=== PATIENT | female | born 1970 | race Caucasian/White ===

== ENCOUNTER 2016-05-16 14:22 | Emergency (ER) | payer BC ==
[~2016-05-16] VITALS: Ht 157.5 cm; Wt 92.0 kg
[~2016-05-16 14:22] MED LIST: CARV12.5 PO; CLON.2 PO; GABA600T PO; GEMF600T PO; HYDR-3533 PO; LISI-357 PO; PAXI20TA26 PO
[2016-05-16 14:26] VITALS: BP 137/84; PULSE 79; RESP 15; TEMP 97.9; O2SAT 95
[2016-05-16] MEDS ORDERED: SODIUM CHLOR 0.9% 1000 ML INJ 1,000 ML IV SCH (14:49)
[2016-05-16] MEDS ORDERED: METF500T PO (14:51)
[2016-05-16] MEDS ORDERED: CLON0.1T PO (14:51)
[2016-05-16] MEDS ORDERED: FLUO10CA5 PO (14:51)
[2016-05-16] MEDS ORDERED: LISI-519 PO (14:51)
[2016-05-16] MEDS ORDERED: ATOR10TA15 PO (14:51)
[2016-05-16] MEDS ORDERED: GABA800T PO (14:51)
[2016-05-16] MEDS ORDERED: CARV12.52 PO (14:51)
--- NOTE | 2016-05-16 14:56 | PD ---
HPI Chief Complaint: Flank/Kidney Pain Time Seen by Provider: 15:10 Travel History International Travel<30 days: No Contact w/Intl Traveler<30days: No Traveled to known affect area: No History of Present Illness HPI This patient was examined in the presence of a female nurse at all times. 45- year-old female presents for evaluation of multiple complaints. She reports a history of frequent kidney stones in the past that required stenting. She is complaining of bilateral flank pain and dysuria and increased urinary pressure for the past 2 weeks. She has been taking ibuprofen with minimal symptom relief. In addition the patient is complaining of possible abnormality in regards to her vagina. She reports that recently when she wiped after using the restroom she felt like there was something "popping out. She cannot characterize this any further. She denies any unusual discharge or any unusual bleeding. She does report a history of partial hysterectomy approximately 10 years ago. The patient also reports left superior breast soreness for the past month. Symptoms are worsened with palpation. She reports a history of pituitary tumor for several years and she notes that occasionally she has because of it. She has not filled any masses or lumps. She denies any fevers or chills. She reports that she had a mammogram 6 months ago which was normal. She has no other complaints at this time. PFSH Past Medical History Asthma: Yes Autoimmune Disease: No Blood Disorders: No Anxiety: Yes Depression: Yes Heart Rhythm Problems: No Cardiac Catheterization: No Cardiovascular Problems: Yes (HTN ) High Cholesterol: Yes Chest Pain: No Congestive Heart Failure: No COPD: No Diabetes: Yes Patient Takes Glucophage: Yes Diminished Hearing: No Endocrine: No Fibromyalgia: Yes Gastrointestinal Disorders: Yes GERD: Yes Genitourinary: Yes Headaches: Yes Hepatitis: No Hypertension: Yes Immune Disorder: No Kidney Stones: Yes Musculoskeletal: Yes Neurologic: Yes (PERIPHERAL NEUROPATHY ) Psychiatric: Yes (DEPRESSION) Reproductive: Yes Respiratory: Yes (CHRONIC BRONCHITIS) Migraines: Yes Myocardial Infarction: No Seizures: Yes Sleep Apnea: No Ulcer: No ?: Not Menopausal: Yes : 3 Para: 2 Miscarriage: 1 Ovarian Cysts: Yes Tubal Ligation: Yes Past Surgical History Abdominal Surgery: No Appendectomy: No Cardiac Surgery: No Cholecystectomy: No Ear Surgery: No Endocrine Surgery: No Eye Surgery: No Genitourinary Surgery: Yes (CYSTOGRAMS X5) Gynecologic Surgery: Yes (TUBAL LIGATION, PARTIAL HYSTERECTOMY ) Hysterectomy: Yes (04/18 PARTIAL) Neurologic Surgery: No Oral Surgery: No Thoracic Surgery: No Social History Alcohol Use: No Tobacco Use: No Substance Use: Yes (cocaine occ) Allergies-Medications (Allergen,Severity, Reaction): Coded Allergies: Cardura (Verified Allergy, Severe, Headache, 05/16/16) SEVERE HEADACHE Reported Meds & Prescriptions Reported Meds & Active Scripts Active Flagyl (Metronidazole) 500 Mg Tab 500 Mg PO BID 7 Days Bactrim DS (Sulfamethoxazole-Trimethoprim) 800-160 Mg Tab 1 Tab PO BID Reported Atorvastatin (Atorvastatin Calcium) 10 Mg Tab 10 Mg PO HS Metformin (Metformin HCl) 500 Mg Tab 500 Mg PO DAILY With a meal Fluoxetine (Fluoxetine HCl) 10 Mg Cap Unknown Dose PO HS Lisinopril 5 Mg Tab 5 Mg PO DAILY Carvedilol 12.5 Mg Tab 12.5 Mg PO BID Clonidine (Clonidine HCl) 0.1 Mg Tab 0.1 Mg PO TID Gabapentin 800 Mg Tab 1,600 Mg PO TID Review of Systems Except as stated in HPI: all other systems reviewed are Neg Physical Exam Narrative GENERAL: Well-developed well-nourished female in no acute distress SKIN: Warm and dry. No erythema, bruising, soft tissue swelling, fluctuance, induration HEAD: Atraumatic. Normocephalic. EYES: Pupils equal and round. No scleral icterus. No injection or drainage. ENT: No nasal bleeding or discharge. Mucous membranes pink and moist. NECK: Trachea midline. No JVD. CARDIOVASCULAR: Regular rate and rhythm. No murmur appreciated. RESPIRATORY: No accessory muscle use. Clear to auscultation. Breath sounds equal bilaterally. GASTROINTESTINAL: Abdomen soft, non-tender, nondistended. Hepatic and splenic margins not palpable. Examination of the breasts reveals pendulous symmetrical breasts bilaterally. There is some tenderness to palpation generalized in the left superior breast tissue. There is no palpable lump or mass. There is no erythema of the skin. There is no nipple discharge or dimpling. There is no axillary lymphadenopathy. Pelvic examination: There is a small amount of white discharge noted in the vaginal canal. There is some discomfort with speculum examination. There is mild left adnexal tenderness. No palpable masses. The cervix is not visualized on examination or by palpation. No foreign body. MUSCULOSKELETAL: No obvious deformities. There is mild bilateral CVA tenderness. NEUROLOGICAL: Awake and alert. No obvious cranial nerve deficits. Motor grossly within normal limits. Normal speech. PSYCHIATRIC: Appropriate mood and affect; insight and judgment normal. Data Data Last Documented VS Vital Signs Date Time Temp Pulse Resp B/P Pulse Ox O2 Delivery O2 Flow Rate FiO2 05/16/16 14:26 97.9 79 15 137/84 95 Orders Complete Blood Count With Diff (05/16/16 14:49) Comprehensive Metabolic Panel (05/16/16 14:49) Gc And Chlamydia Pcr (05/16/16 14:49) Wet Prep Profile (05/16/16 14:49) Urinalysis - C+S If Indicated (05/16/16 14:49) Iv Access Insert/Monitor (05/16/16 14:49) Ondansetron Inj (Zofran Inj) (05/16/16 15:00) Ketorolac Inj (Toradol Inj) (05/16/16 15:00) Sodium Chlor 0.9% 1000 Ml Inj (Ns 1000 M (05/16/16 14:49) Urine Culture (05/16/16 15:05) Labs Laboratory Tests Test 05/16/16 05/16/16 15:05 15:55 White Blood Count 7.1 TH/MM3 Red Blood Count 4.05 MIL/MM3 Hemoglobin 12.3 GM/DL Hematocrit 34.8 % Mean Corpuscular Volume 86.1 FL Mean Corpuscular Hemoglobin 30.4 PG Mean Corpuscular Hemoglobin 35.3 % Concent Red Cell Distribution Width 13.0 % Platelet Count 329 TH/MM3 Mean Platelet Volume 8.0 FL Neutrophils (%) (Auto) 60.7 % Lymphocytes (%) (Auto) 21.3 % Monocytes (%) (Auto) 9.9 % Eosinophils (%) (Auto) 7.2 % Basophils (%) (Auto) 0.9 % Neutrophils # (Auto) 4.3 TH/MM3 Lymphocytes # (Auto) 1.5 TH/MM3 Monocytes # (Auto) 0.7 TH/MM3 Eosinophils # (Auto) 0.5 TH/MM3 Basophils # (Auto) 0.1 TH/MM3 CBC Comment DIFF FINAL Differential Comment Urine Color YELLOW Urine Turbidity HAZY Urine pH 5.5 Urine Specific Hurricane 1.031 Urine Protein 30 mg/dL Urine Glucose (UA) NEG mg/dL Urine Ketones NEG mg/dL Urine Occult Blood NEG Urine Nitrite NEG Urine Bilirubin NEG Urine Urobilinogen 2.0 MG/DL Urine Leukocyte Esterase LARGE Urine RBC 7 /hpf Urine WBC 7 /hpf Urine Squamous Epithelial 25 /hpf Cells Urine Bacteria MOD /hpf Urine Hyaline Casts 3 /lpf Urine Mucus FEW /lpf Microscopic Urinalysis Comment CULTURE INDICATED Sodium Level 137 MEQ/L Potassium Level 3.6 MEQ/L Chloride Level 100 MEQ/L Carbon Dioxide Level 28.5 MEQ/L Anion Gap 9 MEQ/L Blood Urea Nitrogen 14 MG/DL Creatinine 1.05 MG/DL Estimat Glomerular Filtration 56 ML/MIN Rate Random Glucose 119 MG/DL Calcium Level 9.3 MG/DL Total Bilirubin 0.4 MG/DL Aspartate Amino Transf 13 U/L (AST/SGOT) Alanine Aminotransferase 24 U/L (ALT/SGPT) Alkaline Phosphatase 101 U/L Total Protein 7.8 GM/DL Albumin 4.1 GM/DL Clue Cells (Wet Prep) PRESENT Vaginal Trichomonas (Wet Prep) NONE SEEN Vaginal Yeast (Wet Prep) NONE SEEN MDM Medical Decision Making Medical Screen Exam Complete: Yes Emergency Medical Condition: Yes Medical Record Reviewed: Yes Differential Diagnosis Chronic flank pain, neuropathic pain, renal stone, pyelonephritis, hydronephrosis, intravaginal foreign body, uterine prolapse, vaginitis, ovarian cyst Narrative Course 45-year-old female presents with 2 weeks of bilateral flank pain, the sensation of something "popping out" of her vagina when she wiped with tissue paper recently, left breast soreness for one month. Physical examination is reassuring. She is nontoxic in appearance. The patient had multiple CAT scans of the abdomen and pelvis in the past with stable nonobstructing kidney stones. I don't suspect that the patient has an obstructing kidney stone clinically at this time and I did discuss with the patient the risk of radiation exposure from multiple CT imaging and the patient is agreeable with holding off on CT imaging at this time and just treating her empirically. The patient will be given pain medication and nausea medicine. Basic lab work will be performed. Pelvic examination revealed a small amount of white discharge in the vaginal canal with no obvious deformity. She notes a history of partial hysterectomy in the past. Speculum examination and bimanual examination revealed no cervix. She has mild left adnexal tenderness without guarding or palpable mass. She reports that in the past she has had ovarian cysts on her left ovary. She reports that she has not been sexually active and 2.5 years and so she will not be treated for GC/CL prior to the PCR results. The patient's laboratory imaging studies have been reviewed. She has positive clue cells, urinalysis and symptoms are consistent with UTI. She'll be discharged with Bactrim and Flagyl. Diagnosis Primary Impression: Urinary tract infection Qualified Code: N30.01 - Acute cystitis with hematuria Additional Impression: Bacterial vaginosis Additional Instructions: Medication as prescribed. Follow-up with primary care physician. Return for any emergent medical conditions. Med/Other Pt SpecificInfo: Prescription(s) given Scripts Metronidazole (Flagyl)500 Mg [id number] Mg PO BID 7 Days Ref 0 Prov:Jaci Joe MD 05/16/16 Sulfamethoxazole-Trimethoprim (Bactrim DS)800-160 Mg Tab1 Tab PO BID #14 TAB Ref 0 Prov:Jaci Joe MD 05/16/16 Disposition: DISCHARGE HOME Condition: Stable Wolfgang Tan May 16, 2016 14:56
[2016-05-16] MEDS ORDERED: ONDANSETRON HCL 4 MG/2 ML VIAL IVP ONE (15:00)
[2016-05-16] MEDS ORDERED: KETOROLAC TROMETHAMINE 30 MG/ML (IVP) VIAL IV PUSH ONE (15:00)
[2016-05-16 15:26] LABS: AUTOMATED NEUTROPHIL # 4.3 TH/MM3 (1.8-7.7); BASOPHIL # 0.1 TH/MM3 (0-0.2); BASOPHIL % 0.9 % (0.0-2.0); EOSINOPHIL # 0.5 TH/MM3 (0-0.4); EOSINOPHIL % 7.2 % (0.0-4.0); HEMATOCRIT 34.8 % (35.0-46.0); HEMO FLAGS DIFF FINAL; LYMPH % 21.3 % (9.0-44.0); LYMPHOCYTE # 1.5 TH/MM3 (1.0-4.8); MEAN CELL VOLUME 86.1 FL (80.0-100.0); MEAN CORPUSCULAR HEMOGLOBIN 30.4 PG (27.0-34.0); MEAN CORPUSCULAR HGB CONC 35.3 % (32.0-36.0); MONO % 9.9 % (0.0-8.0); NEUT % 60.7 % (16.0-70.0); PLATELET COUNT 329 TH/MM3 (150-450); RED BLOOD COUNT 4.05 MIL/MM3 (4.00-5.30); WHITE BLOOD COUNT 7.1 TH/MM3 (4.0-11.0)
[2016-05-16 15:43] LABS: BACTERIA, URINE MOD /hpf; BLOOD, URINE NEG (NEG); COMMENT (UR) CULTURE INDICATED; CULTURE IF INDICATED CULTURE INDICATED; GLUCOSE,URINE NEG (NEG); HYALINE CAST, URINE 3 /lpf (RARE); KETONE, URINE NEG (NEG); MUCUS URINE FEW /lpf (OCC); NITRITE,URINE NEG (NEG); PH, URINE 5.5 (5.0-8.5); SQUAMOUS EPITHELIAL CELL URINE 25 /hpf (0-5); URINE COLOR YELLOW (YELLW/STRAW)
[2016-05-16 15:55] LABS: ANION GAP 9 MEQ/L (5-15); AST (GOT) 13 U/L (15-37); BICARBONATE 28.5 MEQ/L (21.0-32.0); BLOOD UREA NITROGEN 14 MG/DL (7-18); CHLORIDE 100 MEQ/L (98-107); GLOMERULAR FILTRATION RATE 56 ML/MIN (>89); POTASSIUM 3.6 MEQ/L (3.5-5.1); SODIUM (NA) 137 MEQ/L (136-145)
[2016-05-16 16:35] LABS: ALKALINE PHOSPHATASE 101 U/L (45-117); ALT (GPT) 24 U/L (10-53); TOTAL BILIRUBIN ADULT 0.4 MG/DL (0.2-1.0)
[2016-05-16] MEDS ORDERED: BACT800T5 PO (16:53)
[2016-05-16] MEDS ORDERED: METR-1 PO (16:53)
[2016-05-16] MEDS ORDERED: ACETAMINOPHEN 325 MG TAB PO ONE (17:00)
[2016-05-16] MEDS ORDERED: traMADol HCL 50 MG TAB PO ONE (17:00)
--- NOTE | 2016-05-16 17:06 | PD ---
Data Data Last Documented VS Vital Signs Date Time Temp Pulse Resp B/P Pulse Ox O2 Delivery O2 Flow Rate FiO2 05/16/16 14:26 97.9 79 15 137/84 95 Orders Complete Blood Count With Diff (05/16/16 14:49) Comprehensive Metabolic Panel (05/16/16 14:49) Gc And Chlamydia Pcr (05/16/16 14:49) Wet Prep Profile (05/16/16 14:49) Urinalysis - C+S If Indicated (05/16/16 14:49) Iv Access Insert/Monitor (05/16/16 14:49) Ondansetron Inj (Zofran Inj) (05/16/16 15:00) Ketorolac Inj (Toradol Inj) (05/16/16 15:00) Sodium Chlor 0.9% 1000 Ml Inj (Ns 1000 M (05/16/16 14:49) Urine Culture (05/16/16 15:05) Tramadol (Ultram) (05/16/16 17:00) Acetaminophen (Tylenol) (05/16/16 17:00) Labs Laboratory Tests Test 05/16/16 05/16/16 15:05 15:55 White Blood Count 7.1 TH/MM3 Red Blood Count 4.05 MIL/MM3 Hemoglobin 12.3 GM/DL Hematocrit 34.8 % Mean Corpuscular Volume 86.1 FL Mean Corpuscular Hemoglobin 30.4 PG Mean Corpuscular Hemoglobin 35.3 % Concent Red Cell Distribution Width 13.0 % Platelet Count 329 TH/MM3 Mean Platelet Volume 8.0 FL Neutrophils (%) (Auto) 60.7 % Lymphocytes (%) (Auto) 21.3 % Monocytes (%) (Auto) 9.9 % Eosinophils (%) (Auto) 7.2 % Basophils (%) (Auto) 0.9 % Neutrophils # (Auto) 4.3 TH/MM3 Lymphocytes # (Auto) 1.5 TH/MM3 Monocytes # (Auto) 0.7 TH/MM3 Eosinophils # (Auto) 0.5 TH/MM3 Basophils # (Auto) 0.1 TH/MM3 CBC Comment DIFF FINAL Differential Comment Urine Color YELLOW Urine Turbidity HAZY Urine pH 5.5 Urine Specific [place] 1.031 Urine Protein 30 mg/dL Urine Glucose (UA) NEG mg/dL Urine Ketones NEG mg/dL Urine Occult Blood NEG Urine Nitrite NEG Urine Bilirubin NEG Urine Urobilinogen 2.0 MG/DL Urine Leukocyte Esterase LARGE Urine RBC 7 /hpf Urine WBC 7 /hpf Urine Squamous Epithelial 25 /hpf Cells Urine Bacteria MOD /hpf Urine Hyaline Casts 3 /lpf Urine Mucus FEW /lpf Microscopic Urinalysis Comment CULTURE INDICATED Sodium Level 137 MEQ/L Potassium Level 3.6 MEQ/L Chloride Level 100 MEQ/L Carbon Dioxide Level 28.5 MEQ/L Anion Gap 9 MEQ/L Blood Urea Nitrogen 14 MG/DL Creatinine 1.05 MG/DL Estimat Glomerular Filtration 56 ML/MIN Rate Random Glucose 119 MG/DL Calcium Level 9.3 MG/DL Total Bilirubin 0.4 MG/DL Aspartate Amino Transf 13 U/L (AST/SGOT) Alanine Aminotransferase 24 U/L (ALT/SGPT) Alkaline Phosphatase 101 U/L Total Protein 7.8 GM/DL Albumin 4.1 GM/DL Clue Cells (Wet Prep) PRESENT Vaginal Trichomonas (Wet Prep) NONE SEEN Vaginal Yeast (Wet Prep) NONE SEEN MDM Supervised Visit with ROGERS: Yes Narrative Course The history, exam, and medical decision-making in the associated midlevel provider note were completed with my assistance. I reviewed and agree with the findings presented. I attest that I had a [id number] encounter with the patient on the same day, and personally performed and documented my assessment and findings in the medical record. *My assessment and Findings: This is a 45-year-old female who presents to the emergency department with multiple vague complaints, her chief complaint being that she feels like something is coming out of her vagina. She is very well- appearing on exam. Labs are reassuring. She does have a possible urinary tract infection. Pelvic exam was reportedly unremarkable. I think patient is safe for discharge home with oral antibiotics. Diagnosis Primary Impression: Urinary tract infection Qualified Code: N30.01 - Acute cystitis with hematuria Additional Impression: Bacterial vaginosis Additional Instruction: Medication as prescribed. Follow-up with primary care physician. Return for any emergent medical conditions. Scripts Metronidazole (Flagyl)500 Mg [id number] Mg PO BID 7 Days Ref 0 Prov:Jaci Joe MD 05/16/16 Sulfamethoxazole-Trimethoprim (Bactrim DS)800-160 Mg Tab1 Tab PO BID #14 TAB Ref 0 Prov:Jaci Joe MD 2/4/17 Disposition: 01 DISCHARGE HOME Condition: Stable Jaci Joe MD May 16, 2016 17:06
[2016-05-16 17:44] VITALS: BP 125/74
[2016-05-16 18:52] LABS: CHLAMYDIA PCR NOT DETECTED (NOT DETECT); NEISSERIA PCR NOT DETECTED (NOT DETECT)
== END 2016-05-16 18:04 | disposition home or self-care (01) ==
LOC: NEPE 14:22
DX: N39.0 Urinary tract infection, site not specified (principal); N76.0 Acute vaginitis; E11.9 Type 2 diabetes mellitus without complications; I10 Essential (primary) hypertension; Z87.442 Personal history of urinary calculi
CPT/HCPCS: 80053; 81001; 85025; 87086; 87210; 87491; 87591; 96374; 96375; 99284; J1885; J2405; J7030

== ENCOUNTER 2016-10-21 10:03 | Emergency (ER) | payer BC ==
[~2016-10-21 10:03] MED LIST changes: +ATOR10TA15 PO; +BACT800T5 PO; -CARV12.5 PO; +CARV12.52 PO; -CLON.2 PO; +CLON0.1T PO; +FLUO10CA5 PO; -GABA600T PO; +GABA800T PO; -GEMF600T PO; -HYDR-3533 PO; -LISI-357 PO; +LISI-519 PO; +METF500T PO; +METR-1 PO; -PAXI20TA26 PO
[2016-10-21 10:04] VITALS: PULSE 90; RESP 24; TEMP 98.7; O2SAT 97
[2016-10-21] MEDS ORDERED: DULOXETINE (10:35)
[2016-10-21] MEDS ORDERED: DULO20 PO (10:35)
[2016-10-21] MEDS ORDERED: IBUPROFEN 600 MG TAB PO ONE (11:15)
[2016-10-21] MEDS ORDERED: LORazepam 0.5 MG TAB PO ONE (11:15)
[2016-10-21 11:40] LABS: AUTOMATED NEUTROPHIL # 3.4 TH/MM3 (1.8-7.7); BASOPHIL # 0.1 TH/MM3 (0-0.2); BASOPHIL % 1.1 % (0.0-2.0); EOSINOPHIL # 0.2 TH/MM3 (0-0.4); HEMATOCRIT 37.1 % (35.0-46.0); LYMPH % 21.9 % (9.0-44.0); LYMPHOCYTE # 1.1 TH/MM3 (1.0-4.8); MEAN CORPUSCULAR HGB CONC 35.3 % (32.0-36.0); MONO % 7.9 % (0.0-8.0); NEUT % 65.1 % (16.0-70.0); PLATELET COUNT 87 TH/MM3 (150-450); RED BLOOD COUNT 4.36 MIL/MM3 (4.00-5.30); RED CELL DISTRIBUTION WIDTH 12.3 % (11.6-17.2); WHITE BLOOD COUNT 5.2 TH/MM3 (4.0-11.0)
--- NOTE | 2016-10-21 11:59 | RADRPT ---
EXAM DATE/TIME: 10/21/2016 11:31 [facility] COMPARISON: No previous studies available for comparison. INDICATIONS : Right hand pain after lifting a mattress. MEDICAL HISTORY : None. SURGICAL HISTORY : None. ENCOUNTER: Initial ACUITY: 1 week PAIN SCORE: 10/10 LOCATION: Right hand, first digit FINDINGS: No definite fractures, or dislocations are identified. No definite lytic or sclerotic lesion is seen . The joint spaces are well maintained. CONCLUSION: Unremarkable study. Winsome Kat MD on October 21, 2016 at 11:57 Board Certified Radiologist. This report was verified electronically.
[2016-10-21 12:03] LABS: ALKALINE PHOSPHATASE 92 U/L (45-117); ALT (GPT) 23 U/L (10-53); ANION GAP 7 MEQ/L (5-15); AST (GOT) 20 U/L (15-37); BICARBONATE 26.9 MEQ/L (21.0-32.0); BLOOD UREA NITROGEN 6 MG/DL (7-18); CHLORIDE 106 MEQ/L (98-107); GLOMERULAR FILTRATION RATE 90 ML/MIN (>89); SODIUM (NA) 140 MEQ/L (136-145); TOTAL BILIRUBIN ADULT 0.4 MG/DL (0.2-1.0)
[2016-10-21 12:16] LABS: HEMO FLAGS AUTO DIFF
[2016-10-21 12:17] LABS: PLATELET ESTIMATE SMEAR LOW (NORMAL); PLATELET MORPHOLOGY NORMAL (NORMAL); SCAN/DIFF AUTO DIFF CONFIRMED
[2016-10-21 12:31] LABS: AMPHETAMINE, URINE NEG (NEG); BARBITURATES, URINE NEG (NEG); COCAINE, URINE POS (NEG)
--- NOTE | 2016-10-21 12:31 | PD ---
HPI Chief Complaint: Psychiatric Symptoms Time Seen by Provider: 10:48 Travel History International Travel<30 days: No Contact w/Intl Traveler<30days: No Traveled to known affect area: No History of Present Illness HPI Patient is a 45-year-old female comes in complaining of anxiety, and "feeling like I can't do it anymore." She says that her son recently and she is not handling it well. She denies any suicidal or homicidal ideation. She normally takes Ativan for anxiety, but is out of it. Her primary doctor told her it was only a temporary thing, and she does not want to prescribe any more for her. She also complains of pain to her right thumb. She says she has a history of de Quervain's tenosynovitis, and does not know if she recently injured it. She denies any other medical complaints. PFSH Past Medical History Asthma: Yes Autoimmune Disease: No Blood Disorders: No Anxiety: Yes Depression: Yes Heart Rhythm Problems: No Cardiac Catheterization: No Cardiovascular Problems: Yes (HTN ) High Cholesterol: Yes Chest Pain: No Congestive Heart Failure: No COPD: No Diabetes: Yes Patient Takes Glucophage: Yes Diminished Hearing: No Endocrine: No Fibromyalgia: Yes Gastrointestinal Disorders: Yes GERD: Yes Genitourinary: Yes Headaches: Yes Hepatitis: No Hypertension: Yes Immune Disorder: No Kidney Stones: Yes Musculoskeletal: Yes Neurologic: Yes (PERIPHERAL NEUROPATHY ) Psychiatric: Yes (DEPRESSION) Reproductive: Yes Respiratory: Yes (CHRONIC BRONCHITIS) Migraines: Yes Myocardial Infarction: No Seizures: Yes Sleep Apnea: No Ulcer: No ?: Not Menopausal: Yes : 3 Para: 2 Miscarriage: 1 Ovarian Cysts: Yes Tubal Ligation: Yes Past Surgical History Abdominal Surgery: No Appendectomy: No Cardiac Surgery: No Cholecystectomy: No Ear Surgery: No Endocrine Surgery: No Eye Surgery: No Genitourinary Surgery: Yes (CYSTOGRAMS X5) Gynecologic Surgery: Yes (TUBAL LIGATION, PARTIAL HYSTERECTOMY ) Hysterectomy: Yes (04/18 PARTIAL) Neurologic Surgery: No Oral Surgery: No Thoracic Surgery: No Social History Alcohol Use: No Tobacco Use: No Substance Use: Yes (cocaine occ) Allergies-Medications (Allergen,Severity, Reaction): Coded Allergies: Cardura (Verified Allergy, Severe, Headache, 05/16/16) SEVERE HEADACHE Reported Meds & Prescriptions Reported Meds & Active Scripts Active Reported Cymbalta DR (Duloxetine HCl) 20 Mg Capdr 20 Mg PO DAILY [douloxetine] Atorvastatin (Atorvastatin Calcium) 10 Mg Tab 10 Mg PO HS Metformin (Metformin HCl) 500 Mg Tab 500 Mg PO DAILY With a meal Lisinopril 5 Mg Tab 5 Mg PO DAILY Carvedilol 12.5 Mg Tab 12.5 Mg PO BID Clonidine (Clonidine HCl) 0.1 Mg Tab 0.1 Mg PO TID Gabapentin 800 Mg Tab 1,600 Mg PO TID Review of Systems Except as stated in HPI: all other systems reviewed are Neg General / Constitutional: No: Fever, Chills Eyes: No: Blurred Vision HENT: No: Headaches, Lightheadedness Cardiovascular: No: Chest Pain or Discomfort Respiratory: No: Shortness of Breath Gastrointestinal: No: Nausea, Vomiting Musculoskeletal: Positive: Pain Skin: No Rash, No Change in Pigmentation Neurologic: No: Weakness, Dizziness Psychiatric: Positive: Anxiety, No: Suicidal Ideations, Homicidal Ideation Physical Exam Narrative GENERAL: Awake and alert, in no acute distress. SKIN: Focused skin assessment warm/dry. HEAD: Atraumatic. Normocephalic. EYES: Pupils equal and round. No scleral icterus. ENT: Mucous membranes pink and moist. NECK: Trachea midline. No JVD. CARDIOVASCULAR: Regular rate and rhythm. No murmur appreciated. RESPIRATORY: No accessory muscle use. Clear to auscultation. Breath sounds equal bilaterally. GASTROINTESTINAL: Abdomen soft, non-tender, nondistended. Hepatic and splenic margins not palpable. MUSCULOSKELETAL: No obvious deformities. No clubbing. No cyanosis. No edema. Tender to palpation of the right thumb. Pain with movement of the right thumb. No signs of infection. NEUROLOGICAL: Awake and alert. No obvious cranial nerve deficits. Motor grossly within normal limits. Normal speech. PSYCHIATRIC: Tearful; insight and judgment normal. Data Data Last Documented VS Vital Signs Date Time Temp Pulse Resp B/P Pulse Ox O2 Delivery O2 Flow Rate FiO2 10/21/16 10:04 98.7 90 24 97 Room Air Orders Complete Blood Count With Diff (10/21/16 11:04) Comprehensive Metabolic Panel (10/21/16 11:04) Drug Screen, Random Urine (10/21/16 11:04) Hand, Complete ([id number]) (10/21/16 ) Ibuprofen (Motrin) (10/21/16 11:15) Lorazepam (Ativan) (10/21/16 11:15) Labs Laboratory Tests Test 10/21/16 10/21/16 11:22 11:44 White Blood Count 5.2 TH/MM3 Red Blood Count 4.36 MIL/MM3 Hemoglobin 13.1 GM/DL Hematocrit 37.1 % Mean Corpuscular Volume 85.0 FL Mean Corpuscular Hemoglobin 30.0 PG Mean Corpuscular Hemoglobin 35.3 % Concent Red Cell Distribution Width 12.3 % Platelet Count 87 TH/MM3 Mean Platelet Volume 10.2 FL Neutrophils (%) (Auto) 65.1 % Lymphocytes (%) (Auto) 21.9 % Monocytes (%) (Auto) 7.9 % Eosinophils (%) (Auto) 4.0 % Basophils (%) (Auto) 1.1 % Neutrophils # (Auto) 3.4 TH/MM3 Lymphocytes # (Auto) 1.1 TH/MM3 Monocytes # (Auto) 0.4 TH/MM3 Eosinophils # (Auto) 0.2 TH/MM3 Basophils # (Auto) 0.1 TH/MM3 CBC Comment AUTO DIFF Differential Comment AUTO DIFF CONFIRMED Platelet Estimate LOW Platelet Morphology Comment NORMAL Sodium Level 140 MEQ/L Potassium Level 4.0 MEQ/L Chloride Level 106 MEQ/L Carbon Dioxide Level 26.9 MEQ/L Anion Gap 7 MEQ/L Blood Urea Nitrogen 6 MG/DL Creatinine 0.70 MG/DL Estimat Glomerular Filtration 90 ML/MIN Rate Random Glucose 113 MG/DL Calcium Level 9.1 MG/DL Total Bilirubin 0.4 MG/DL Aspartate Amino Transf 20 U/L (AST/SGOT) Alanine Aminotransferase 23 U/L (ALT/SGPT) Alkaline Phosphatase 92 U/L Total Protein 7.6 GM/DL Albumin 3.9 GM/DL Urine Opiates Screen NEG Urine Barbiturates Screen NEG Urine Amphetamines Screen NEG Urine Benzodiazepines Screen NEG Urine Cocaine Screen POS Urine Cannabinoids Screen NEG MDM Medical Decision Making Medical Screen Exam Complete: Yes Emergency Medical Condition: Yes Medical Record Reviewed: Yes Differential Diagnosis Anxiety versus depression versus intoxication versus drug seeking Narrative Course Patient is a 45-year-old female comes in complaining of "being unable to handle life." She complains of right thumb pain. Exam shows no acute abnormalities. X-ray of the hand shows no acute abnormal body. Labs show no acute abnormalities. Patient given ibuprofen for pain. Given a small dose of Ativan. She'll be cleared for psychiatric evaluation. Disposition per psychiatry. Diagnosis Primary Impression: Anxiety Additional Impression: Thumb pain Qualified Code: M79.644 - Thumb pain, right Condition: Stable Cynthia Hernandez MD Oct 21, 2016 12:31
== END 2016-10-21 13:31 | disposition home or self-care (01) ==
LOC: NEPD 10:03 → NEPJ 13:31
DX: F41.9 Anxiety disorder, unspecified (principal); M79.644 Pain in right finger(s); J45.909 Unspecified asthma, uncomplicated; F32.9 Major depressive disorder, single episode, unspecified; I10 Essential (primary) hypertension; M79.7 Fibromyalgia; K21.9 Gastro-esophageal reflux disease without esophagitis; E11.40 Type 2 diabetes mellitus with diabetic neuropathy, unspecified; E78.00 Pure hypercholesterolemia, unspecified
CPT/HCPCS: 73130; 80053; 80307; 85025; 99284

== ENCOUNTER 2017-03-28 14:02 | Emergency (ER) | payer BC ==
[~2017-03-28] VITALS: Ht 157.5 cm; Wt 85.0 kg
[~2017-03-28 14:02] MED LIST changes: -BACT800T5 PO; +DULO20 PO; +DULOXETINE; -FLUO10CA5 PO; -METR-1 PO
[2017-03-28 14:03] VITALS: BP 143/71; PULSE 82; RESP 20; TEMP 98.8; O2SAT 98
[2017-03-28] MEDS ORDERED: DULO1CAP2 PO (14:38)
[2017-03-28] MEDS ORDERED: KETOROLAC TROMETHAMINE 60 MG/2 ML (IM) VIAL IM ONE (15:15)
[2017-03-28] MEDS ORDERED: MOBI15TA PO (15:23)
[2017-03-28] MEDS ORDERED: TYLETAB34 PO (15:23)
--- NOTE | 2017-03-28 15:23 | PD ---
HPI Chief Complaint: Pain: Acute or Chronic Time Seen by Provider: 15:02 Travel History International Travel<30 days: No Contact w/Intl Traveler<30days: No Traveled to known affect area: No History of Present Illness HPI 46-year-old female complains of right shoulder pain and right-sided neck pain. Patient states that she was trying to catch another falling person 3 days ago. Since having sharp pain on the right-sided neck, right shoulder pad and right shoulder area since then. Patient denies any direct fall to the shoulder. Patient denies any focal weakness or numbness of the extremity. On a scale of 1 -10 the pain is a 9. PFSH Past Medical History Asthma: Yes Autoimmune Disease: No Blood Disorders: No Anxiety: Yes Depression: Yes Heart Rhythm Problems: No Cardiac Catheterization: No Cardiovascular Problems: Yes (HTN ) High Cholesterol: Yes Chest Pain: No Congestive Heart Failure: No COPD: No Diabetes: Yes Patient Takes Glucophage: No Diminished Hearing: No Endocrine: No Fibromyalgia: Yes Gastrointestinal Disorders: Yes GERD: Yes Genitourinary: Yes Headaches: Yes Hepatitis: No Hypertension: Yes Immune Disorder: No Kidney Stones: Yes Musculoskeletal: Yes Neurologic: Yes (PERIPHERAL NEUROPATHY ) Psychiatric: Yes (DEPRESSION) Reproductive: Yes Respiratory: Yes (CHRONIC BRONCHITIS) Migraines: Yes Myocardial Infarction: No Seizures: Yes Sleep Apnea: No Ulcer: No ?: Not Menopausal: Yes : 3 Para: 2 Miscarriage: 1 Ovarian Cysts: Yes Tubal Ligation: Yes Past Surgical History Abdominal Surgery: No Appendectomy: No Cardiac Surgery: No Cholecystectomy: No Ear Surgery: No Endocrine Surgery: No Eye Surgery: No Genitourinary Surgery: Yes (CYSTOGRAMS X5) Gynecologic Surgery: Yes (TUBAL LIGATION, PARTIAL HYSTERECTOMY ) Hysterectomy: Yes Neurologic Surgery: No Oral Surgery: No Thoracic Surgery: No Social History Alcohol Use: No Tobacco Use: No Substance Use: Yes (cocaine occ) Allergies-Medications (Allergen,Severity, Reaction): Coded Allergies: doxazosin (Unverified Allergy, Severe, Headache, 03/28/17) SEVERE HEADACHE Reported Meds & Prescriptions Reported Meds & Active Scripts Active Mobic (Meloxicam) 15 Mg Tab 15 Mg PO DAILY Tylenol-Codeine #3 (Acetaminophen-Codeine) 300-30 mg Tab 1-2 Tab PO Q6H PRN Reported Duloxetine DR (Duloxetine HCl) Unknown Strength Capdr Unknown Dose PO DAILY Cymbalta DR (Duloxetine HCl) 20 Mg Capdr 20 Mg PO DAILY Atorvastatin (Atorvastatin Calcium) 10 Mg Tab 10 Mg PO HS Metformin (Metformin HCl) 500 Mg Tab 500 Mg PO DAILY With a meal Lisinopril 5 Mg Tab 5 Mg PO DAILY Carvedilol 12.5 Mg Tab 12.5 Mg PO BID Clonidine (Clonidine HCl) 0.1 Mg Tab 0.1 Mg PO TID Gabapentin 800 Mg Tab 1,600 Mg PO TID Review of Systems General / Constitutional: No: Fever Eyes: No: Visual changes HENT: Positive: Neck Pain, No: Headaches Cardiovascular: No: Chest Pain or Discomfort Respiratory: No: Shortness of Breath Gastrointestinal: No: Abdominal Pain Genitourinary: No: Dysuria Musculoskeletal: Positive: Pain Skin: No Rash Neurologic: No: Weakness Psychiatric: No: Depression Endocrine: No: Polydipsia Hematologic/Lymphatic: No: Easy Bruising Physical Exam Narrative GENERAL: Well-nourished, well-developed patient. SKIN: Focused skin assessment warm/dry. HEAD: Normocephalic. EYES: No scleral icterus. No injection or drainage. NECK: Supple, trachea midline. No JVD or lymphadenopathy. Patient has mild to moderate tenderness and palpation right paraspinal areas cervical spine. No midline tenderness. CARDIOVASCULAR: Regular rate and rhythm without murmurs, gallops, or rubs. RESPIRATORY: Breath sounds equal bilaterally. No accessory muscle use. GASTROINTESTINAL: Abdomen soft, non-tender, nondistended. MUSCULOSKELETAL: No cyanosis, or edema. Patient has mild to moderate tenderness palpation right shoulder pad area with moderate tenderness diffuse over the right shoulder joint. Limited range of motion of the right shoulder secondary to pain. Sensorimotor function distally intact. BACK: Nontender without obvious deformity. No CVA tenderness. Neurologic exam normal. Data Data Last Documented VS Vital Signs Date Time Temp Pulse Resp B/P (MAP) Pulse Ox O2 Delivery O2 Flow Rate FiO2 03/28/17 14:03 98.8 82 20 143/71 (95) 98 Room Air Orders Orders Ketorolac Inj (Toradol Inj) (03/28/17 15:15) Shoulder, Limited(2vws) (03/28/17 15:07) Spine, Cervical - Ltd (Ap&Lat) (03/28/17 15:07) MDM Medical Decision Making Medical Screen Exam Complete: Yes Emergency Medical Condition: Yes Interpretation(s) Last Impressions Shoulder X-Ray 03/28/17 1507 Signed Impressions: Service Date/Time: Tuesday, March 28, 2017 15:20 - CONCLUSION: 2 loose bodies without an obvious donor site . No definite acute fracture . Carlos Enrique Vuong MD Cervical Spine X-Ray 03/28/17 1507 Signed Impressions: Service Date/Time: Tuesday, March 28, 2017 15:15 - CONCLUSION: Unremarkable limited examination of the cervical spine except at 2 levels of mild degenerative disc disease. Carlos Enrique Vuong MD Differential Diagnosis Differential diagnosis including musculoskeletal, fracture, dislocation, rotator cuff injury. Narrative Course 46-year-old female with right-sided neck pain, right shoulder head pain, right shoulder pain. Status post trying to break a fall from another person. Toradol 60 mg IM. Diagnosis Primary Impression: Sprain of shoulder, right Qualified Codes: S43.401A - Unspecified sprain of right shoulder joint, initial encounter Additional Impression: Cervical strain Qualified Codes: S16.1XXA - Strain of muscle, fascia and tendon at neck level , initial encounter Patient Instructions: General Instructions Med/Other Pt SpecificInfo: Prescription(s) given Scripts Meloxicam (Mobic) 15 Mg Tab 15 MG PO DAILY for Pain, #20 TAB 0 Refills Prov: Mark Mott MD 03/28/17 Disposition: 01 DISCHARGE HOME Condition: Stable Mark Mott MD Mar 28, 2017 15:23
--- NOTE | 2017-03-28 15:42 | RADRPT ---
EXAM DATE/TIME: 03/28/2017 15:15 [facility] COMPARISON: No previous studies available for comparison. INDICATIONS : Pain in shoulder, extending through neck after straining from holding a heavy load. MEDICAL HISTORY : None. SURGICAL HISTORY : None. ENCOUNTER: Initial ACUITY: 1 day PAIN SCORE: 6/10 LOCATION: Neck. FINDINGS: Two projection examination was performed. There is normal alignment and curvature of the vertebral b odies down to the level of C7. No evidence of fracture or subluxation. Vertebral body height is mele ntained. There is mild intervertebral disc space tearing at the C6-7 level and to a lesser extent C5- 6. The prevertebral soft tissues are of normal thickness. The atlanto-axial articulation is intact. CONCLUSION: Unremarkable limited examination of the cervical spine except at 2 levels of mild degenerative disc d isease. Carlos Enrique Vuong MD on March 28, 2017 at 15:39 Board Certified Radiologist. This report was verified electronically.
--- NOTE | 2017-03-28 15:43 | RADRPT ---
EXAM DATE/TIME: 03/28/2017 15:20 [facility] COMPARISON: No previous studies available for comparison. INDICATIONS : Pain in shoulder, extending through neck after straining from holding a heavy load. MEDICAL HISTORY : None. SURGICAL HISTORY : None. ENCOUNTER: Initial ACUITY: 1 day PAIN SCORE: 5/10 LOCATION: Right shoulder. FINDINGS: Two view examination of the right shoulder demonstrates no evidence of fracture or dislocation. The glenohumeral and acromioclavicular joints are maintained. Bony mineralization is normal. 2 ossific f ragments overlying the joint space likely loose bodies CONCLUSION: 2 loose bodies without an obvious donor site . No definite acute fracture . Carlos Enrique Vuong MD on March 28, 2017 at 15:41 Board Certified Radiologist. This report was verified electronically.
== END 2017-03-28 16:11 | disposition home or self-care (01) ==
LOC: NEPD 14:02
DX: S43.401A Unspecified sprain of right shoulder joint, initial encounter (principal); S16.1XXA Strain of muscle, fascia and tendon at neck level, initial encounter; R51 Headache; M50.322 Other cervical disc degeneration at C5-C6 level; M50.323 Other cervical disc degeneration at C6-C7 level; J45.909 Unspecified asthma, uncomplicated; I10 Essential (primary) hypertension; E11.9 Type 2 diabetes mellitus without complications; X58.XXXA Exposure to other specified factors, initial encounter
CPT/HCPCS: 72040; 73030; 99284; J1885

== ENCOUNTER 2017-09-01 09:10 | Emergency (ER) | payer SELFPAY ==
[~2017-09-01 09:10] MED LIST changes: +DULO1CAP2 PO; -DULOXETINE; +MOBI15TA PO
[2017-09-01 09:12] VITALS: BP 255/126; PULSE 108; RESP 20; O2SAT 96
[2017-09-01 09:31] VITALS: BP 220/123; PULSE 96; RESP 16; TEMP 98.4; O2SAT 97
[2017-09-01 09:39] VITALS: O2SAT 98
--- NOTE | 2017-09-01 09:44 | PD ---
HPI Chief Complaint: Chest Pain Time Seen by Provider: 09:28 Travel History International Travel<30 days: No Contact w/Intl Traveler<30days: No Traveled to known affect area: No History of Present Illness HPI 46-year-old female complains of neck pain, upper back pain, chest pain. Patient states that she was started walking home from work this morning. Patient states that after an hour walking she started having muscular spasm pain to the neck area, upper back area with 3 day to the chest. Patient denies any injury. Patient states that she has shortness of breath with that. Patient states that she was sweating. Patient denies any nausea vomiting. Patient denies any palpitation. Patient has history hypertension, diabetes, hyperlipidemia. Patient is a non-smoker. Patient denies family history of heart disease. Patient denies history of CAD. Patient has history of of anxiety, depression, GERD, seizure, peripheral neuropathy, bronchitis, PTSD. Patient has history hypertension and has been taking her medications as directed. PFSH Past Medical History Asthma: Yes Autoimmune Disease: No Blood Disorders: No Anxiety: Yes Depression: Yes Heart Rhythm Problems: No Cardiac Catheterization: No Cardiovascular Problems: Yes (HTN ) High Cholesterol: Yes Chest Pain: No Congestive Heart Failure: No COPD: No Diabetes: Yes Patient Takes Glucophage: Yes Diminished Hearing: No Endocrine: No Fibromyalgia: Yes Gastrointestinal Disorders: Yes GERD: Yes Genitourinary: Yes Headaches: Yes Hepatitis: No Hypertension: Yes Immune Disorder: No Kidney Stones: Yes Musculoskeletal: Yes Neurologic: Yes (PERIPHERAL NEUROPATHY ) Psychiatric: Yes (DEPRESSION, PTSD) Reproductive: Yes Respiratory: Yes (CHRONIC BRONCHITIS) Migraines: Yes Myocardial Infarction: No Seizures: Yes Sleep Apnea: No Ulcer: No Influenza Vaccination: No ?: Not Menopausal: Yes : 3 Para: 2 Miscarriage: 1 Ovarian Cysts: Yes Tubal Ligation: Yes Past Surgical History Abdominal Surgery: No Appendectomy: No Cardiac Surgery: No Cholecystectomy: No Ear Surgery: No Endocrine Surgery: No Eye Surgery: No Genitourinary Surgery: Yes (CYSTOGRAMS X5) Gynecologic Surgery: Yes (TUBAL LIGATION, PARTIAL HYSTERECTOMY ) Hysterectomy: Yes Neurologic Surgery: No Oral Surgery: No Thoracic Surgery: No Social History Alcohol Use: No Tobacco Use: No Substance Use: No (cocaine use hx) Allergies-Medications (Allergen,Severity, Reaction): Coded Allergies: doxazosin (Unverified Adverse Reaction, Severe, Headache, 5/23/18) SEVERE HEADACHE Reported Meds & Prescriptions Reported Meds & Active Scripts Active Robaxin (Methocarbamol) 750 Mg Tab 750 Mg PO QID Reported Cymbalta DR (Duloxetine HCl) 20 Mg Capdr 20 Mg PO DAILY Atorvastatin (Atorvastatin Calcium) 10 Mg Tab 10 Mg PO HS Metformin (Metformin HCl) 500 Mg Tab 500 Mg PO DAILY With a meal Lisinopril 5 Mg Tab 5 Mg PO DAILY Clonidine (Clonidine HCl) 0.1 Mg Tab 0.2 Mg PO TID Gabapentin 800 Mg Tab 1,600 Mg PO TID Review of Systems General / Constitutional: No: Fever Eyes: No: Visual changes HENT: Positive: Neck Pain, No: Headaches Cardiovascular: Positive: Chest Pain or Discomfort Respiratory: No: Shortness of Breath Gastrointestinal: No: Abdominal Pain Genitourinary: No: Dysuria Musculoskeletal: No: Pain Skin: No Rash Neurologic: No: Weakness Psychiatric: No: Depression Endocrine: No: Polydipsia Hematologic/Lymphatic: No: Easy Bruising Physical Exam Narrative GENERAL: Well-nourished, well-developed patient. SKIN: Focused skin assessment warm/dry. HEAD: Normocephalic. EYES: No scleral icterus. No injection or drainage. NECK: Supple, trachea midline. No JVD or lymphadenopathy. Mild tenderness on palpation paraspinal area cervical spine and upper back area. CARDIOVASCULAR: Regular rate and rhythm without murmurs, gallops, or rubs. RESPIRATORY: Breath sounds equal bilaterally. No accessory muscle use. GASTROINTESTINAL: Abdomen soft, non-tender, nondistended. MUSCULOSKELETAL: No cyanosis, or edema. BACK: Mild tenderness on palpation of the back area, without obvious deformity. No CVA tenderness. Neurologic exam normal. Data Data Last Documented VS Vital Signs Date Time Temp Pulse Resp B/P (MAP) Pulse Ox O2 Delivery O2 Flow Rate FiO2 09/01/17 09:39 98 Room Air 09/01/17 09:31 98.4 96 16 Orders Orders Sodium Chlor 0.9% 1000 Ml Inj (Ns 1000 M (09/01/17 09:45) Ketorolac Inj (Toradol Inj) (09/01/17 09:45) Electrocardiogram (09/01/17 09:36) Complete Blood Count With Diff (09/01/17 09:36) Comprehensive Metabolic Panel (09/01/17 09:36) Creatine Kinase (Cpk) (09/01/17 09:36) Troponin I (09/01/17 09:36) Prothrombin Time / Inr (Pt) (09/01/17 09:36) Act Partial Throm Time (Ptt) (09/01/17 09:36) Chest, Single Ap (09/01/17 09:36) Iv Access Insert/Monitor (09/01/17 09:36) Ecg Monitoring (09/01/17 09:36) Oximetry (09/01/17 09:36) Morphine Inj (Morphine Inj) (09/01/17 10:45) Ondansetron Odt (Zofran Odt) (09/01/17 10:45) Morphine Inj (Morphine Inj) (09/01/17 11:00) CKMB (09/01/17 09:29) CKMB% (09/01/17 09:29) Ed Discharge Order (09/01/17 11:29) Labs Laboratory Tests Test 09/01/17 09:29 White Blood Count 5.6 TH/MM3 Red Blood Count 4.33 MIL/MM3 Hemoglobin 12.9 GM/DL Hematocrit 36.6 % Mean Corpuscular Volume 84.6 FL Mean Corpuscular Hemoglobin 29.7 PG Mean Corpuscular Hemoglobin Concent 35.1 % Red Cell Distribution Width 13.2 % Platelet Count 254 TH/MM3 Mean Platelet Volume 8.5 FL Neutrophils (%) (Auto) 67.2 % Lymphocytes (%) (Auto) 20.7 % Monocytes (%) (Auto) 7.7 % Eosinophils (%) (Auto) 3.4 % Basophils (%) (Auto) 1.0 % Neutrophils # (Auto) 3.8 TH/MM3 Lymphocytes # (Auto) 1.2 TH/MM3 Monocytes # (Auto) 0.4 TH/MM3 Eosinophils # (Auto) 0.2 TH/MM3 Basophils # (Auto) 0.1 TH/MM3 CBC Comment DIFF FINAL Differential Comment Prothrombin Time 9.6 SEC Prothromb Time International Ratio 0.9 RATIO Activated Partial Thromboplast Time 24.5 SEC Blood Urea Nitrogen 10 MG/DL Creatinine 0.86 MG/DL Random Glucose 166 MG/DL Total Protein 8.4 GM/DL Albumin 4.1 GM/DL Calcium Level 9.4 MG/DL Alkaline Phosphatase 114 U/L Aspartate Amino Transf (AST/SGOT) 26 U/L Alanine Aminotransferase (ALT/SGPT) 30 U/L Total Bilirubin 0.4 MG/DL Sodium Level 141 MEQ/L Potassium Level 3.8 MEQ/L Chloride Level 102 MEQ/L Carbon Dioxide Level 27.0 MEQ/L Anion Gap 12 MEQ/L Estimat Glomerular Filtration Rate 70 ML/MIN Total Creatine Kinase 213 U/L Creatine Kinase MB 3.2 NG/ML Creatine Kinase MB % 1.5 % Troponin I LESS THAN 0.02 NG/ML MDM Medical Decision Making Medical Screen Exam Complete: Yes Emergency Medical Condition: Yes Interpretation(s) 11:18 AM. Last Impressions Chest X-Ray 09/01/17 0936 Signed Impressions: CONCLUSION: 11:18 AM. Chest x-ray shows no acute process. CBC within normal limits. CMP within normal limits. Cardiac enzymes are normal. Total CK 213. Normal MB fraction. Differential Diagnosis Differential diagnosis including muscular spasm, heat exhaustion, electrolyte imbalance, uncontrolled hypertension, angina, MN, PE, pneumothorax. Narrative Course 46-year-old female with neck and back pain, chest pain, body ache after walking for an hour in the heat. Normal saline solution 1 L IV bolus. Toradol 30 mg IV. Diagnosis Primary Impression: Heat exhaustion Qualified Codes: T67.5XXA - Heat exhaustion, unspecified, initial encounter Additional Impression: Muscle spasm Patient Instructions: General Instructions Additional Instructions: Encourage p.o. fluid. Advil Tylenol for aching pain. Follow-up with personal physician. Return if worse. Med/Other Pt SpecificInfo: No Change to Meds Scripts Methocarbamol (Robaxin) 750 Mg Tab 750 MG PO QID for Muscle Spasm, #40 TAB 0 Refills Prov: Mark Mott MD 09/01/17 Disposition: 01 DISCHARGE HOME Condition: Stable Mark Mott MD September 01, 2017 09:44
[2017-09-01] MEDS ORDERED: SODIUM CHLOR 0.9% 1000 ML INJ 1,000 ML IV ONE (09:45)
[2017-09-01] MEDS ORDERED: KETOROLAC TROMETHAMINE 30 MG/ML (IVP) VIAL IV PUSH ONE (09:45)
[2017-09-01 10:09] LABS: AUTOMATED NEUTROPHIL # 3.8 TH/MM3 (1.8-7.7); BASOPHIL # 0.1 TH/MM3 (0-0.2); EOSINOPHIL # 0.2 TH/MM3 (0-0.4); EOSINOPHIL % 3.4 % (0.0-4.0); HEMATOCRIT 36.6 % (35.0-46.0); HEMOGLOBIN 12.9 GM/DL (11.6-15.3); LYMPH % 20.7 % (9.0-44.0); LYMPHOCYTE # 1.2 TH/MM3 (1.0-4.8); MEAN CELL VOLUME 84.6 FL (80.0-100.0); MEAN CORPUSCULAR HEMOGLOBIN 29.7 PG (27.0-34.0); MEAN CORPUSCULAR HGB CONC 35.1 % (32.0-36.0); MEAN PLATELET VOLUME 8.5 FL (7.0-11.0); MONO % 7.7 % (0.0-8.0); MONOCYTE # 0.4 TH/MM3 (0-0.9); NEUT % 67.2 % (16.0-70.0); PLATELET COUNT 254 TH/MM3 (150-450); RED BLOOD COUNT 4.33 MIL/MM3 (4.00-5.30); RED CELL DISTRIBUTION WIDTH 13.2 % (11.6-17.2); WHITE BLOOD COUNT 5.6 TH/MM3 (4.0-11.0)
--- NOTE | 2017-09-01 10:23 | RADRPT ---
EXAM DATE: 09/01/2017 10:19 AM EDT AGE/SEX: 46 years / Female INDICATIONS: Heart Palpitations CLINICAL DATA: This is the patient's initial encounter. Patient reports that signs and symptoms have been present for 1 day and indicates a pain score of 8/10. MEDICAL/SURGICAL HISTORY: Hypertension. None. COMPARISON: [facility] – [place]ST SINGLE AP, 09/09/2014. . FINDINGS: No new focal pleural or parenchymal opacities. Cardiomediastinal contours are stable. Bony thorax is intact. CONCLUSION: 1. No acute cardiopulmonary disease. Electronically signed by: Luis Benjamin MD 09/01/2017 10:22 AM EDT
[2017-09-01 10:24] LABS: INTERNATIONAL NORMALIZED RATIO 0.9 RATIO; PROTHROMBIN TIME - PATIENT 9.6 SEC (9.8-11.6)
[2017-09-01] MEDS ORDERED: MORPHINE SULFATE 2 MG/ML SYRINGE IV PUSH ONE (10:45)
[2017-09-01] MEDS ORDERED: ONDANSETRON ODT 4 MG TAB PO ONE (10:45)
[2017-09-01 10:57] LABS: ALBUMIN 4.1 GM/DL (3.4-5.0); ALKALINE PHOSPHATASE 114 U/L (45-117); ALT (GPT) 30 U/L (10-53); AST (GOT) 26 U/L (15-37); BLOOD UREA NITROGEN 10 MG/DL (7-18); CALCIUM 9.4 MG/DL (8.5-10.1); CHLORIDE 102 MEQ/L (98-107); CREATININE 0.86 MG/DL (0.50-1.00); GLOMERULAR FILTRATION RATE 70 ML/MIN (>89); GLUCOSE,RANDOM 166 MG/DL (74-106); SODIUM (NA) 141 MEQ/L (136-145); TOTAL BILIRUBIN ADULT 0.4 MG/DL (0.2-1.0); TOTAL PROTEIN 8.4 GM/DL (6.4-8.2); TROPONIN I LESS THAN 0.02 NG/ML (0.02-0.05)
[2017-09-01] MEDS ORDERED: MORPHINE SULFATE 4 MG/ML INJ IV PUSH ONE (11:00)
[2017-09-01] MEDS ORDERED: ROBA750T PO (11:25)
[2017-09-01 11:57] VITALS: BP 193/105
--- NOTE | 2017-09-01 13:54 | EKG ---
Date Performed: 09/01/2017 Time Performed: 09:23:56 PTAGE: 46 years EKG: Sinus rhythm LEFT VENTRICULAR HYPERTROPHY AND ST-T CHANGE ABNORMAL ECG Compared to prior electrocardiogram, rate has increased and ST segment and T wave changes are more marked . NO PREVIOUS TRACING DOCTOR: Devin Sorensen Interpretating Date/Time 09/01/2017 13:53:42
== END 2017-09-01 12:00 | disposition home or self-care (01) ==
LOC: NEPC 09:10
DX: T67.5XXA Heat exhaustion, unspecified, initial encounter (principal); M62.838 Other muscle spasm; E11.42 Type 2 diabetes mellitus with diabetic polyneuropathy; E78.00 Pure hypercholesterolemia, unspecified; I10 Essential (primary) hypertension; M79.7 Fibromyalgia; Z79.84 Long term (current) use of oral hypoglycemic drugs
CPT/HCPCS: 71045; 80053; 82550; 82552; 84484; 85025; 85610; 85730; 93005; 96361; 96374; 96375; 99285; J1885; J2270; J7030